=== PATIENT | female | born 1970 | race Two or more races ===

== ENCOUNTER 2019-03-30 15:43 | Emergency (ER) | payer SELFPAY ==
[~2019-03-30] VITALS: Ht 160 cm; Wt 87.0 kg
[2019-03-30 21:55] LABS: BASOPHILS % 0.4 % (0.0-2.0); EOSINOPHILS % 0.7 % (0.0-5.0); HEMATOCRIT. 28.2 % (36.0-48.0); HEMOGLOBIN. 9.4 g/dL (12.0-16.0); LYMPHOCYTES % 20.7 % (20.0-50.0); MEAN CORPUSCULAR HEMOGLOBIN 30.8 pg (28.0-32.0); MEAN CORPUSCULAR VOLUME 92.3 fL (81.0-99.0); MONOCYTES % 9.5 % (2.0-8.0); NEUTROPHILS % 68.7 % (40.0-76.0); PLATELET 195 x1000/uL (130-400); RED BLOOD CELL COUNT 3.06 mill/uL (4.2-5.4); RED CELL DISTRIBUTION WIDTH 14.3 % (11.6-14.6)
[2019-03-30] MEDS: HYDROCODONE/ACETAMINOPHEN 5/325MG TABLET PO ONE (22:57)
[2019-03-31 00:12] LABS: CLARITY URINE TURBID (CLEAR); COLOR URINE YELLOW (YELLOW); KETONES URINE NEGATIVE (NEGATIVE); LEUKOCYTE ESTERASE URINE NEGATIVE (NEGATIVE); NITRITE URINE NEGATIVE (NEGATIVE); OCCULT BLOOD URINE NEGATIVE (NEGATIVE); PH URINE 5.5 (4.5-8.0); PROTEIN URINE NEGATIVE (NEGATIVE); SPECIFIC GRAVITY URINE 1.034 (1.005-1.030); UROBILINOGEN URINE 0.2 E.U./dL (0.2-1.0)
[2019-03-31 00:15] LABS: EOSINOPHILS % 3.3 % (0.0-5.0); HEMATOCRIT. 34.4 % (36.0-48.0); HEMOGLOBIN. 11.8 g/dL (12.0-16.0); LYMPHOCYTES % 26.9 % (20.0-50.0); MEAN CORPUSCULAR HEMOGLOBIN 28.6 pg (28.0-32.0); MEAN CORPUSCULAR VOLUME 83.2 fL (81.0-99.0); MONOCYTES % 6.6 % (2.0-8.0); NEUTROPHILS % 62.2 % (40.0-76.0); PLATELET 246 x1000/uL (130-400); RED BLOOD CELL COUNT 4.13 mill/uL (4.2-5.4); RED CELL DISTRIBUTION WIDTH 13.8 % (11.6-14.6)
[2019-03-31 00:19] LABS: CHLORIDE 104 mEq/L (98-107)
[2019-03-31] MEDS: IBUPROFEN 800MG TABLET PO ONE (01:29)
[2019-03-31] MEDS: MICONAZOLE NITRATE 2% OINT 71GM TOP SCH (01:31)
[2019-03-31 01:33] VITALS: BP 138/64
== END 2019-03-31 01:35 | disposition home or self-care (01) ==
LOC: ER 15:43
DX: R50.9 Fever, unspecified (principal); R11.10 Vomiting, unspecified; E11.9 Type 2 diabetes mellitus without complications; E78.00 Pure hypercholesterolemia, unspecified; I10 Essential (primary) hypertension; Z98.890 Other specified postprocedural states
CPT/HCPCS: 36415; 76641; 80048; 81025; 99284

== ENCOUNTER 2019-04-01 15:33 | Inpatient (IN) | payer MEDICAID ==
[~2019-04-01] VITALS: Ht 160 cm; Wt 80.3 kg
[2019-04-01] MEDS ORDERED: ONDANSETRON HCL 4MG/2ML INJ IV STA (21:27)
[2019-04-01] MEDS ORDERED: KETOROLAC 30MG/ML VIAL IV STA (21:27)
[2019-04-01] MEDS ORDERED: MORPHINE SULFATE 4 MG/ML CPJ (NOT FOR IM USE) IV STA (21:27)
[2019-04-01] MEDS ORDERED: VANCOMYCIN 1 G PREMIX 200 ML IV ONE (21:30)
[2019-04-01] MEDS ORDERED: LIDOCAINE HCL/PF 1% 10 MG/ML 5ML VIAL IJ ONE (21:30)
[2019-04-01] MEDS ORDERED: PIPERACILLIN/TAZ 3.375G PREMIX 50 ML IV ONE (21:30)
[2019-04-01] MEDS ORDERED: SODIUM CHLORIDE 0.9% 1000ML BAG (SEPSIS BOLUS) IV ONE (21:30)
[2019-04-01] MEDS ORDERED: BACITRACIN ZINC OINT UDPKT TOP ONE (21:30)
[2019-04-01] MEDS ORDERED: TETANUS, DIPHTHERIA, PERTUSSIS VAC/PF 0.5ML (>7YR OLD) IM ONE (21:30)
[2019-04-01 21:50] LABS: BASOPHILS % 0.5 % (0.0-2.0); EOSINOPHILS % 3.2 % (0.0-5.0); HEMATOCRIT. 36.4 % (36.0-48.0); HEMOGLOBIN. 12.4 g/dL (12.0-16.0); LYMPHOCYTES % 23.5 % (20.0-50.0); MEAN CORPUSCULAR HEMOGLOBIN 28.4 pg (28.0-32.0); MEAN CORPUSCULAR VOLUME 83.6 fL (81.0-99.0); MEAN PLATELET VOLUME 9.2 fl (7.4-10.4); MONOCYTES % 6.3 % (2.0-8.0); NEUTROPHILS % 66.5 % (40.0-76.0); PLATELET 256 x1000/uL (130-400); RED BLOOD CELL COUNT 4.35 mill/uL (4.2-5.4); RED CELL DISTRIBUTION WIDTH 13.8 % (11.6-14.6)
[2019-04-01 21:53] LABS: CHLORIDE 104 mEq/L (98-107)
[2019-04-01 21:55] LABS: PROTHROMBIN TIME 10.1 sec (9.6-11.0)
[2019-04-01] MEDS ORDERED: LORAZEPAM 2MG/ML CPJ IV ONE (22:00)
[2019-04-01] MEDS ORDERED: BACITRACIN 15GM TUBE TOP NR (23:00)
[2019-04-01] MEDS ORDERED: ONDANSETRON HCL 4MG/2ML INJ IV ONE (23:15)
[2019-04-01] MEDS ORDERED: MORPHINE SULFATE 4 MG/ML CPJ (NOT FOR IM USE) IV ONE (23:15)
[2019-04-01] MEDS ORDERED: ACETAMINOPHEN 325MG TABLET PO PRN (23:45)
[2019-04-01] MEDS ORDERED: HYDRALAZINE 20MG/ML VIAL IV PRN (23:45)
[2019-04-01] MEDS ORDERED: DEXTROSE 50% WATER 50ML SYRINGE IV PRN (23:45)
[2019-04-01] MEDS ORDERED: HYDROMORPHONE HCL/PF 2MG/ML CPJ IV PRN (23:45)
[2019-04-01] MEDS ORDERED: LORAZEPAM 2MG/ML CPJ IV PRN (23:45)
[2019-04-01] MEDS ORDERED: CLONIDINE 0.1MG TABLET PO PRN (23:45)
[2019-04-01] MEDS ORDERED: PIPERACILLIN/TAZ 3.375G PREMIX 50 ML IV SCH (23:45)
[2019-04-01] MEDS ORDERED: DOCUSATE SODIUM 100MG CAPSULE PO PRN (23:45)
[2019-04-01] MEDS ORDERED: GUAIFENESIN 200MG/10ML SUGAR FREE UDC PO PRN (23:45)
[2019-04-01] MEDS ORDERED: NA PHOS,M-B/NA PHOS,DI-BA ENEMA 118ML PR PRN (23:45)
[2019-04-01] MEDS ORDERED: IPRATROPIUM/ALBUTEROL 0.5-3(2.5)MG/3ML NEB INH PRN (23:45)
[2019-04-01] MEDS ORDERED: DIPHENHYDRAMINE 50MG/ML VIAL IV PRN (23:45)
[2019-04-01] MEDS ORDERED: MAGNESIUM/ALUMINUM HYDROXIDE/SIMETHICONE 30ML UDC PO PRN (23:45)
[2019-04-02] VITALS (7 sets, daily range): BP systolic 112–149; BP diastolic 57–84
[2019-04-02 00:55] LABS: CLARITY URINE CLEAR (CLEAR); COLOR URINE YELLOW (YELLOW); KETONES URINE NEGATIVE (NEGATIVE); LEUKOCYTE ESTERASE URINE NEGATIVE (NEGATIVE); NITRITE URINE NEGATIVE (NEGATIVE); OCCULT BLOOD URINE NEGATIVE (NEGATIVE); PROTEIN URINE NEGATIVE (NEGATIVE); SPECIFIC GRAVITY URINE 1.037 (1.005-1.030); UROBILINOGEN URINE 0.2 E.U./dL (0.2-1.0)
[2019-04-02] MEDS ORDERED: HYDRALAZINE 10 MG in SODIUM CHLORIDE 0.9% 49.5 ML IV PRN (03:15)
[2019-04-02] MEDS: ONDANSETRON HCL 4MG/2ML INJ IV PRN ×2 (05:56→09:56)
[2019-04-02] MEDS: SODIUM CHLORIDE 0.9% INJ 3ML FLUSH IVF SCH ×2 (05:59→14:02)
[2019-04-02] MEDS: PIPERACILLIN/TAZOBACTAM 3.375 G in DEXT 5% WATER 100 ML IV SCH ×3 (06:00→23:44)
[2019-04-02] MEDS: BLOOD SUGAR DIAGNOSTIC STRIP TEST SCH ×4 (07:20→21:00)
[2019-04-02] MEDS: INSULIN LISPRO 100 UNITS/ML SUBCUT SCH ×4 (08:57→22:10)
[2019-04-02] MEDS: ASPIRIN 81MG EC TABLET PO SCH (09:55)
[2019-04-02] MEDS: VANCOMYCIN 1 G PREMIX 200 ML IV SCH ×2 (09:55→22:10)
[2019-04-02] MEDS: HYDROCODONE/ACETAMINOPHEN 10/325MG TABLET PO PRN ×3 (09:55→22:20)
[2019-04-02] MEDS: ENOXAPARIN 40MG/0.4ML SYR SUBCUT SCH (09:56)
[2019-04-02 10:04] LABS: BASOPHILS % 0.5 % (0.0-2.0); EOSINOPHILS % 0.3 % (0.0-5.0); HEMATOCRIT. 35.2 % (36.0-48.0); HEMOGLOBIN. 11.7 g/dL (12.0-16.0); LYMPHOCYTES % 7.4 % (20.0-50.0); MEAN CORPUSCULAR HEMOGLOBIN 28.1 pg (28.0-32.0); MEAN CORPUSCULAR VOLUME 84.7 fL (81.0-99.0); NEUTROPHILS % 86.8 % (40.0-76.0); PLATELET 214 x1000/uL (130-400); RED BLOOD CELL COUNT 4.16 mill/uL (4.2-5.4); RED CELL DISTRIBUTION WIDTH 13.4 % (11.6-14.6)
[2019-04-02 10:11] LABS: CHLORIDE 108 mEq/L (98-107)
[2019-04-03] VITALS: BP 102/52
[2019-04-03 04:00] VITALS: BP 99/56
[2019-04-03] MEDS: HYDROCODONE/ACETAMINOPHEN 10/325MG TABLET PO PRN (06:27)
[2019-04-03] MEDS: PIPERACILLIN/TAZOBACTAM 3.375 G in DEXT 5% WATER 100 ML IV SCH ×3 (06:27→22:59)
[2019-04-03] MEDS: SODIUM CHLORIDE 0.9% INJ 3ML FLUSH IVF SCH (06:28)
[2019-04-03] MEDS: BLOOD SUGAR DIAGNOSTIC STRIP TEST SCH ×4 (07:20→21:00)
[2019-04-03 08:00] VITALS: BP 136/76
[2019-04-03] MEDS: VANCOMYCIN 1 G PREMIX 200 ML IV SCH ×2 (09:49→20:58)
[2019-04-03] MEDS: ASPIRIN 81MG EC TABLET PO SCH (09:50)
[2019-04-03] MEDS: ENOXAPARIN 40MG/0.4ML SYR SUBCUT SCH (09:51)
[2019-04-03] MEDS: INSULIN LISPRO 100 UNITS/ML SUBCUT SCH ×4 (10:08→21:00)
[2019-04-03 12:00] VITALS: BP 120/62
[2019-04-03 16:00] VITALS: BP 140/79
[2019-04-03] MEDS: ONDANSETRON HCL 4MG/2ML INJ IV PRN ×2 (16:57→20:58)
[2019-04-03 20:00] VITALS: BP 143/51
[2019-04-04] VITALS: BP 110/58
[2019-04-04] MEDS: SODIUM CHLORIDE 0.9% INJ 3ML FLUSH IVF SCH ×3 (01:55→15:44)
[2019-04-04 04:00] VITALS: BP 123/68
[2019-04-04] MEDS: PIPERACILLIN/TAZOBACTAM 3.375 G in DEXT 5% WATER 100 ML IV SCH ×2 (05:51→15:39)
[2019-04-04] MEDS: BLOOD SUGAR DIAGNOSTIC STRIP TEST SCH ×4 (07:37→21:24)
[2019-04-04 08:00] VITALS: BP 130/79
[2019-04-04] MEDS: VANCOMYCIN 1 G PREMIX 200 ML IV SCH ×2 (08:59→21:00)
[2019-04-04] MEDS: ASPIRIN 81MG EC TABLET PO SCH (08:59)
[2019-04-04] MEDS: ENOXAPARIN 40MG/0.4ML SYR SUBCUT SCH ×2 (09:00→09:01)
[2019-04-04] MEDS: INSULIN LISPRO 100 UNITS/ML SUBCUT SCH ×4 (10:16→21:24)
[2019-04-04 12:00] VITALS: BP 126/87
[2019-04-04] MEDS: HYDROCODONE/ACETAMINOPHEN 10/325MG TABLET PO PRN (15:52)
[2019-04-04 16:00] VITALS: BP 138/66
[2019-04-04 21:44] VITALS: BP 151/103
== END 2019-04-04 22:17 | disposition home or self-care (01) | DRG 385 ==
LOC: ER 16:57 → 6EST 23:13 → EDBEDREQSVC 23:15 → EDBEDREQ 23:15 → ENRESERV 04-02 00:10
PROVIDERS: ADMIT Internal Medicine; ATTEND Internal Medicine
PROC: 0H9U0ZZ Drainage of Left Breast, Open Approach (ICD-10-PCS; principal; 2019-04-01)
DX: N61.1 Abscess of the breast and nipple (principal); E11.9 Type 2 diabetes mellitus without complications; E78.5 Hyperlipidemia, unspecified; I10 Essential (primary) hypertension; Z98.891 History of uterine scar from previous surgery
CPT/HCPCS: 36415; 71045; 80202; 81003; 82962; 83605; 84145; 84484; 87106; 90715; 93005; 99285; J1170; J1200; J1650; J1815; J1885; J2060; J2270; J2405; J2543; J3370; J3490; J7030; J7060

== ENCOUNTER 2024-05-31 16:53 | Inpatient (IN) | payer MEDICAID ==
[~2024-05-31] VITALS: Ht 160 cm; Wt 88.5 kg
[2024-05-31 18:05] LABS: BASOPHILS % 0.7 % (0.0-2.0); EOSINOPHILS % 1.6 % (0.0-5.0); HEMATOCRIT. 39.9 % (36.0-48.0); HEMOGLOBIN. 13.1 g/dL (12.0-16.0); LYMPHOCYTES % 23.2 % (20.0-50.0); MEAN CORPUSCULAR HEMOGLOBIN 27.1 pg (28.0-32.0); MEAN CORPUSCULAR HGB CONC 32.7 g/dL (31.0-37.0); MEAN PLATELET VOLUME 9.8 fl (7.4-10.4); MONOCYTES % 6.9 % (2.0-8.0); NEUTROPHILS % 67.6 % (40.0-76.0); PLATELET 227 x1000/uL (130-400); RED BLOOD CELL COUNT 4.81 mill/uL (4.2-5.4); RED CELL DISTRIBUTION WIDTH 14.1 % (11.6-14.6); WHITE BLOOD COUNT 6.7 x1000/uL (4.5-11.0)
[2024-05-31 18:12] LABS: CARBON DIOXIDE 27 mEq/L (21-32); CHLORIDE 103 mEq/L (98-107); POTASSIUM 4.3 mEq/L (3.5-5.1); SODIUM 135 mEq/L (136-145)
[2024-05-31 18:13] LABS: CALCIUM 9.6 mg/dL (8.7-10.4)
[2024-05-31 18:17] LABS: CREATININE 1.3 mg/dL (0.6-1.0); GLUCOSE 376 mg/dL (70-105)
[2024-05-31 18:18] LABS: ALANINE AMINOTRANSFERASE 17 IU/L (10-49); ASPARTATE AMINOTRANSFERASE 17 IU/L (<34); UREA NITROGEN BLOOD 20 mg/dL (9-23)
[2024-05-31 18:20] LABS: BILIRUBIN DIRECT 0.3 mg/dL (<=3.0); BILIRUBIN TOTAL 1.2 mg/dL (0.1-1.0); PROTEIN TOTAL 7.1 g/dL (6.0-8.3)
[2024-05-31] MEDS: SODIUM CHLORIDE 0.9% 1,000 ML IV ONE (18:41)
[2024-05-31] MEDS: KETOROLAC 30MG/ML VIAL IV STA (18:42)
[2024-05-31 21:18] LABS: HCG SCREEN NEGATIVE
[2024-05-31] MEDS ORDERED: IPRATROPIUM/ALBUTEROL 0.5-3(2.5)MG/3ML NEB HHN PRN (23:30)
[2024-05-31] MEDS ORDERED: GUAIFENESIN 200MG/10ML SUGAR FREE UDC PO PRN (23:30)
[2024-05-31] MEDS ORDERED: ONDANSETRON HCL 4MG/2ML INJ IV PRN (23:30)
[2024-05-31] MEDS ORDERED: DEXTROSE 50% WATER 50ML SYRINGE IV PRN (23:30)
[2024-05-31] MEDS ORDERED: ACETAMINOPHEN 325MG TABLET PO PRN (23:30)
[2024-05-31] MEDS ORDERED: DOCUSATE SODIUM 100MG CAPSULE PO PRN (23:30)
[2024-05-31] MEDS ORDERED: LORAZEPAM 0.5MG TABLET PO PRN (23:30)
[2024-05-31 23:34] LABS: CLARITY URINE CLOUDY (CLEAR); COLOR URINE YELLOW (YELLOW); GLUCOSE URINE 3+ (NEGATIVE); KETONES URINE NEGATIVE (NEGATIVE); LEUKOCYTE ESTERASE URINE NEGATIVE (NEGATIVE); NITRITE URINE NEGATIVE (NEGATIVE); OCCULT BLOOD URINE NEGATIVE (NEGATIVE); PH URINE 5.5 (4.5-8.0); PROTEIN URINE TRACE (NEGATIVE); SPECIFIC GRAVITY URINE 1.027 (1.005-1.030); UROBILINOGEN URINE 0.2 E.U./dL (0.2-1.0)
[2024-06-01 00:20] VITALS: BP 154/122; PULSE 57; RESP 20; TEMP 36.78072; O2SAT 99
[2024-06-01 00:30] LABS: T4 FREE 1.43 ng/dL (0.89-1.76)
[2024-06-01 00:31] LABS: THYROID STIMULATING HORMONE 2.39 uIU/mL (0.55-4.78)
[2024-06-01 00:44] LABS: HEPATITIS B SURFACE ANTIGEN NEGATIVE (Negative)
[2024-06-01 01:00] VITALS: BP 154/122; PULSE 57; RESP 20; TEMP 36.8072
[2024-06-01 01:04] LABS: HEPATITIS A AB IGM NEGATIVE (Negative)
[2024-06-01 01:05] LABS: HEPATITIS B CORE AB IGM NEGATIVE (Negative)
[2024-06-01 01:06] LABS: HEPATITIS C AB NON REACTIVE (Neg) (Negative)
[2024-06-01 01:26] LABS: WBC URINE 0-2 /hpf (0-2)
[2024-06-01 01:27] LABS: BACTERIA URINE TRACE; RBC URINE 0-2 /hpf (0-2); SQUAMOUS EPITHELIAL CELL URINE FEW /lpf (RARE/1+)
[2024-06-01] MEDS: LISINOPRIL 20MG TABLET PO SCH (01:43)
[2024-06-01] MEDS: ACETAMINOPHEN 325MG TABLET PO PRN (01:44)
[2024-06-01] MEDS: ATORVASTATIN CALCIUM 20MG TABLET PO SCH (01:44)
[2024-06-01] MEDS: INSULIN REGULAR (HUMULIN R) 1000UNITS/10ML VIAL SUBCUT NR (01:46)
[2024-06-01] MEDS ORDERED: METF-874 MT (02:17)
[2024-06-01 04:00] VITALS: BP 106/53; PULSE 57; RESP 18; TEMP 36.22512; O2SAT 99
[2024-06-01] MEDS: BLOOD SUGAR DIAGNOSTIC STRIP TEST SCH (06:48)
[2024-06-01 08:00] VITALS: BP 145/65; PULSE 67; RESP 19; TEMP 37.05852; O2SAT 100
[2024-06-01] MEDS: INSULIN LISPRO 100 UNITS/ML SUBCUT SCH (08:44)
[2024-06-01] MEDS: ENOXAPARIN 30MG/0.3ML SYR SUBCUT SCH (08:45)
[2024-06-01] MEDS ORDERED: NALOXONE HCL 0.4MG/ML VIAL IV PRN (14:45)
[2024-06-01 16:00] VITALS: BP 135/65; PULSE 71; RESP 20; TEMP 36.55848; O2SAT 100
[2024-06-01] MEDS: HYDROCODONE/ACETAMINOPHEN 5/325MG TABLET PO PRN (17:52)
[2024-06-01] MEDS: DEXAMETHASONE 4MG/ML 1ML VIAL IV SCH (18:39)
[2024-06-01 20:00] VITALS: BP 139/70; PULSE 60; RESP 19; TEMP 36.6696; O2SAT 98
[2024-06-02] VITALS: BP 131/65; PULSE 58; RESP 16; TEMP 37.00296; O2SAT 99
[2024-06-02 08:00] VITALS: BP 160/67; PULSE 67; RESP 20; TEMP 36.50292; O2SAT 99
[2024-06-02 12:00] VITALS: BP 155/76; PULSE 71; RESP 18; TEMP 36.44736; O2SAT 99
[2024-06-02] MEDS: METFORMIN HCL 500MG TABLET PO NR (13:15)
[2024-06-02 16:00] VITALS: BP 180/84; PULSE 61; RESP 18; TEMP 36.50292; O2SAT 99
[2024-06-02 16:06] VITALS: BP 155/76; PULSE 61; TEMP 97.6; O2SAT 99
[2024-06-02] MEDS: CLONIDINE 0.1MG TABLET PO PRN (16:24)
[2024-06-02] MEDS ORDERED: METF-416 MT (16:45)
[2024-06-02] MEDS ORDERED: TOPUD MT (16:46)
[2024-06-02] MEDS ORDERED: ATOR40TA70 PO (16:47)
[2024-06-02] MEDS ORDERED: CEPH500C2 PO (16:48)
[2024-06-02] MEDS ORDERED: SULF15DR26 EACHEYE (16:48)
[2024-06-02] MEDS ORDERED: INSU100I24 SUBCUT (16:48)
[2024-06-02] MEDS ORDERED: ASPI-1406 PO (16:48)
[2024-06-02] MEDS ORDERED: BLOO-1113 XX (16:48)
[2024-06-02] MEDS ORDERED: GLIP10TA10 PO (16:48)
[2024-06-02] MEDS ORDERED: SITA100T11 PO (16:48)
[2024-06-02] MEDS ORDERED: LEVO250T74 PO (16:48)
[2024-06-02] MEDS ORDERED: NAPR-679 PO (16:48)
[2024-06-02] MEDS ORDERED: NITR100C11 PO (16:48)
[2024-06-02] MEDS ORDERED: CLOT30SO TP (16:49)
[2024-06-02] MEDS ORDERED: NEED-123 SUBCUT (16:49)
[2024-06-02] MEDS ORDERED: LANC-493 TP (16:49)
[2024-06-02] MEDS ORDERED: [UNRECOGNIZED DRUG - OTHER] (16:49)
[2024-06-02] MEDS ORDERED: BENA5TAB40 PO (16:49)
[2024-06-02] MEDS ORDERED: [UNRECOGNIZED DRUG - CODE] TP (16:49)
[2024-06-02] MEDS ORDERED: ERGO1250 PO (16:49)
[2024-06-02] MEDS ORDERED: CIPR2.5D20 LEFTEYE (16:49)
[2024-06-02 16:58] VITALS: BP 174/76; PULSE 61; TEMP 97.7; O2SAT 99
[2024-06-02] MEDS ORDERED: METFORMIN HCL 500MG TABLET PO SCH (17:50)
[2024-06-03] MEDS ORDERED: GLIPIZIDE 5MG TABLET PO SCH (07:20)
== END 2024-06-02 17:30 | disposition home or self-care (01) | DRG 532 ==
LOC: ER 16:53 → 6WST 21:08 → EDBEDREQTM 21:13 → EDBEDREQ 21:13
PROVIDERS: ADMIT Internal Medicine; ATTEND Internal Medicine
DX: D25.9 Leiomyoma of uterus, unspecified (principal); N13.1 Hydronephrosis with ureteral stricture, not elsewhere classified; K80.20 Calculus of gallbladder without cholecystitis without obstruction; E11.9 Type 2 diabetes mellitus without complications; E78.00 Pure hypercholesterolemia, unspecified; I10 Essential (primary) hypertension; M16.11 Unilateral primary osteoarthritis, right hip; M47.26 Other spondylosis with radiculopathy, lumbar region; E66.9 Obesity, unspecified; R32 Unspecified urinary incontinence; M54.89 Other dorsalgia; Z55.6 Problems related to health literacy; Z79.4 Long term (current) use of insulin; Z91.199 Patient's noncompliance with other medical treatment and regimen due to unspecified reason; Z98.891 History of uterine scar from previous surgery; Z79.84 Long term (current) use of oral hypoglycemic drugs; Z90.710 Acquired absence of both cervix and uterus; Z91.148 Patient's other noncompliance with medication regimen for other reason; Z68.34 Body mass index [BMI] 34.0-34.9, adult
CPT/HCPCS: 36415; 72131; 72148; 74176; 76830; 76856; 80048; 80061; 80076; 81003; 82962; 83036; 84439; 84443; 84703; 85025; 86705; 86709; 86850; 86900; 87340; 93005; 99291; J1100; J1650; J1815; J1885; J7030

== ENCOUNTER 2024-09-12 12:36 | Inpatient (IN) | payer SELFPAY ==
[~2024-09-12] VITALS: Ht 152.4 cm; Wt 84.8 kg
[~2024-09-12 12:36] MED LIST: ASPI-1406 PO; ATOR40TA70 PO; BENA5TAB40 PO; BLOO-1113 XX; CEPH500C2 PO; CIPR2.5D20 LEFTEYE; CLOT30SO TP; ERGO1250 PO; GLIP10TA17 PO; INSU100I24 SUBCUT; LANC-493 TP; LEVO250T74 PO; METF-1150 MT; METF-416 MT; NAPR-679 PO; NEED-123 SUBCUT; NITR100C11 PO; SITA100T11 PO; SULF15DR26 EACHEYE; TOPUD MT; [UNRECOGNIZED DRUG - CODE] TP; [UNRECOGNIZED DRUG - OTHER]
[2024-09-12] MEDS: LIDOCAINE 5% PATCH TOP SCH (16:09)
[2024-09-12] MEDS: KETOROLAC 15MG/ML VIAL IM ONE (16:09)
[2024-09-12] MEDS: ONDANSETRON HCL 4MG TABLET PO ONE (16:10)
[2024-09-12 16:19] LABS: HEMATOCRIT. 39.8 % (36.0-48.0); HEMOGLOBIN. 13.5 g/dL (12.0-16.0); MEAN CORPUSCULAR HEMOGLOBIN 28.1 pg (28.0-32.0); MEAN CORPUSCULAR HGB CONC 33.9 g/dL (31.0-37.0); MEAN CORPUSCULAR VOLUME 82.8 fL (81.0-99.0); MEAN PLATELET VOLUME 9.3 fl (7.4-10.4); PLATELET 207 x1000/uL (130-400); RED BLOOD CELL COUNT 4.81 mill/uL (4.2-5.4); RED CELL DISTRIBUTION WIDTH 14.1 % (11.6-14.6); WHITE BLOOD COUNT 7.7 x1000/uL (4.5-11.0)
[2024-09-12 16:20] LABS: CHLORIDE 98 mEq/L (98-107); POTASSIUM 4.4 mEq/L (3.5-5.1); SODIUM 130 mEq/L (136-145)
[2024-09-12 16:21] LABS: CARBON DIOXIDE 20 mEq/L (21-32)
[2024-09-12 16:22] LABS: CALCIUM 10.2 mg/dL (8.7-10.4)
[2024-09-12 16:25] LABS: DIFFERENTIAL COMMENT 1
[2024-09-12 16:26] LABS: CREATININE 1.2 mg/dL (0.6-1.0); GLUCOSE 322 mg/dL (70-105)
[2024-09-12 16:27] LABS: UREA NITROGEN BLOOD 19 mg/dL (9-23)
[2024-09-12 16:28] LABS: ALANINE AMINOTRANSFERASE 23 IU/L (10-49); ALBUMIN 4.6 g/dL (3.2-4.8); ASPARTATE AMINOTRANSFERASE 20 IU/L (<34)
[2024-09-12 16:29] LABS: BILIRUBIN DIRECT 0.4 mg/dL (<=3.0); BILIRUBIN TOTAL 1.7 mg/dL (0.1-1.0)
[2024-09-12] MEDS: PIPERACILLIN/TAZO 3.375G/50ML 50 ML IV SCH (18:40)
[2024-09-12 19:10] VITALS: BP 146/91; PULSE 70; RESP 16; TEMP 36.55848; TEMP 36.5848; O2SAT 100
[2024-09-12 20:00] VITALS: BP 146/74; PULSE 70; RESP 16; TEMP 36.55848; O2SAT 100
[2024-09-12] MEDS ORDERED: PIPERACILLIN/TAZO 3.375G/50ML 50 ML IV SCH (22:00)
[2024-09-12] MEDS ORDERED: DEXTROSE 50% WATER 50ML SYRINGE IV PRN (23:45)
[2024-09-12 23:49] LABS: PLATELET ESTIMATE NORMAL
[2024-09-13] VITALS: BP 157/80; PULSE 68; RESP 17; TEMP 36.16956; O2SAT 99
[2024-09-13 04:00] VITALS: BP 139/77; PULSE 67; RESP 20; TEMP 36.22512; O2SAT 96
[2024-09-13] MEDS: BLOOD SUGAR DIAGNOSTIC STRIP TEST SCH (06:20)
[2024-09-13] MEDS: HYDROCODONE/ACETAMINOPHEN 10/325MG TABLET PO PRN (06:20)
[2024-09-13 07:04] LABS: CALCIUM 9.3 mg/dL (8.7-10.4); POTASSIUM 4.6 mEq/L (3.5-5.1)
[2024-09-13 07:10] LABS: CREATININE 1.4 mg/dL (0.6-1.0)
[2024-09-13 07:35] LABS: BASOPHILS % 0.9 % (0.0-2.0); EOSINOPHILS % 2.1 % (0.0-5.0); HEMATOCRIT. 35.4 % (36.0-48.0); HEMOGLOBIN. 11.9 g/dL (12.0-16.0); LYMPHOCYTES % 14.4 % (20.0-50.0); MEAN CORPUSCULAR HGB CONC 33.7 g/dL (31.0-37.0); MEAN CORPUSCULAR VOLUME 83.1 fL (81.0-99.0); MEAN PLATELET VOLUME 9.6 fl (7.4-10.4); MONOCYTES % 10.6 % (2.0-8.0); PLATELET 179 x1000/uL (130-400); RED BLOOD CELL COUNT 4.26 mill/uL (4.2-5.4); WHITE BLOOD COUNT 5.8 x1000/uL (4.5-11.0)
[2024-09-13 08:00] VITALS: BP 129/72; PULSE 67; RESP 17; TEMP 36.28068; O2SAT 98
[2024-09-13] MEDS: LISINOPRIL 5MG TABLET PO SCH (08:32)
[2024-09-13] MEDS: ATORVASTATIN CALCIUM 40MG TABLET PO SCH (08:32)
[2024-09-13] MEDS: ASPIRIN 81MG EC TABLET PO SCH (08:33)
[2024-09-13] MEDS: METFORMIN HCL 500MG TABLET PO SCH (08:33)
[2024-09-13] MEDS: GLIPIZIDE 10MG TABLET PO SCH (08:33)
[2024-09-13] MEDS: INSULIN LISPRO 100 UNITS/ML SUBCUT SCH (08:34)
[2024-09-13] MEDS: INSULIN GLARGINE 100 UNITS/ML SUBCUT SCH (10:20)
[2024-09-13 12:00] VITALS: BP 97/54; PULSE 57; RESP 13; TEMP 35.66952; O2SAT 98
[2024-09-13] MEDS ORDERED: NALOXONE HCL 0.4MG/ML VIAL IV PRN (13:15)
[2024-09-13] MEDS: ACETAMINOPHEN 325MG TABLET PO PRN (13:32)
[2024-09-13] MEDS ORDERED: INSU100I28 SQ (18:18)
[2024-09-13 20:00] VITALS: BP_SYST 101; BP_SYST 121; BP_DIAS 54; BP_DIAS 79; PULSE 68; PULSE 88; RESP 19; TEMP 36.6696; O2SAT 99
[2024-09-13 20:48] LABS: CLARITY URINE CLOUDY (CLEAR); COLOR URINE DARK YELLOW (YELLOW); GLUCOSE URINE 2+ (NEGATIVE); KETONES URINE TRACE (NEGATIVE); LEUKOCYTE ESTERASE URINE 2+ (NEGATIVE); NITRITE URINE NEGATIVE (NEGATIVE); OCCULT BLOOD URINE NEGATIVE (NEGATIVE); PROTEIN URINE 1+ (NEGATIVE); SPECIFIC GRAVITY URINE 1.017 (1.005-1.030); UROBILINOGEN URINE 0.2 E.U./dL (0.2-1.0)
[2024-09-13 20:57] LABS: BACTERIA URINE 1+; RBC URINE 0-2 /hpf (0-2); SQUAMOUS EPITHELIAL CELL URINE 2+ /lpf (RARE/1+)
[2024-09-13 23:16] VITALS: BP 112/51; PULSE 55; RESP 19; TEMP 36.78072; O2SAT 98
[2024-09-14] MEDS ORDERED: CEPH500C2 MT (12:54)
== END 2024-09-13 23:16 | disposition home or self-care (01) | DRG 249 ==
LOC: ER 12:36 → 6EST 17:17 → ER 18:04
PROVIDERS: ADMIT Internal Medicine; ATTEND Internal Medicine
DX: K52.9 Noninfective gastroenteritis and colitis, unspecified (principal); N17.0 Acute kidney failure with tubular necrosis; B34.9 Viral infection, unspecified; E11.65 Type 2 diabetes mellitus with hyperglycemia; J06.9 Acute upper respiratory infection, unspecified; E66.9 Obesity, unspecified; E78.00 Pure hypercholesterolemia, unspecified; I10 Essential (primary) hypertension; K80.20 Calculus of gallbladder without cholecystitis without obstruction; Z98.891 History of uterine scar from previous surgery; Z68.36 Body mass index [BMI] 36.0-36.9, adult; Z79.899 Other long term (current) drug therapy
CPT/HCPCS: 36415; 71045; 74176; 76700; 80048; 80061; 80076; 81003; 82962; 83036; 85025; 99285; A4606; A4663; J1815; J1885; J2543; Q0162